=== PATIENT | male | born 1970 | race Caucasian/White ===

== ENCOUNTER 2025-10-17 03:25 | Observation (INO) | payer OTHER, SELFPAY ==
[2025-10-16] VITALS (7 sets, daily range): BP systolic 115–157; BP diastolic 78–102; BMI 28.9
[2025-10-16 15:12] LABS: Hematocrit 44.8 % (39.0-52.0); Hemoglobin 15.5 g/dL (13.0-18.0); Mean Corp Hgb Conc. 34.6 g/dL (33.0-37.0); Mean Corpuscular Volume 90.1 fL (80.0-94.0); Nucleated Red Blood Cells % 0 % (-); Platelet Count 156 10^3/uL (130-400); Red Cell Dist. Width 12.6 % (11.5-14.5)
[2025-10-16 15:34] LABS: ALT (SGPT) 26 U/L (0-50); AST (SGOT) 27 U/L (17-59); Albumin 4.8 g/dl (3.5-5.0); Alkaline Phosphatase 53 U/L (38-126); Blood Urea Nitrogen 16 mg/dl (9-20); Calcium 9.4 mg/dl (8.4-10.2); Carbon Dioxide 26 mmol/L (22-30); Chloride 103 mmol/L (98-107); Glucose 103 mg/dl (70-99); Lipase 161 U/L (23-300); Potassium 4.0 mmol/L (3.5-5.1); Sodium 138 mmol/L (135-145); Total Protein 7.5 g/dl (6.3-8.2); eGFR > 60.00
--- NOTE | 2025-10-16 20:20 | ED.GENMED ---
History of Present Illness
<Maya Ventura NP - Last Filed: 10/17/25 14:07>
General
Chief Complaint: Abdominal Symptoms
Source: patient
Exam Limitations: none
Time Seen by Provider: 10/16/25 20:00
Nursing documentation reviewed up to this point in time: agreed with
History of Present Illness
History of Present Illness:
Patient to the emergency department for evaluation of umbilical pain redness and swelling. Patient states his symptoms started on Wednesday. States pain is worse with standing and sitting. Today he looked at his abdomen and saw swelling at umbilicus
and surrounding erythema. He was evaluated by his PCP and advised to come to the emergency department for imaging. He denies fever chills nausea vomiting diarrhea. No prior history of same.
Past History
<Maya Ventura NP - Last Filed: 10/17/25 14:07>
Past History
ED Past Medical History: None
ED Past Surgical History: None
Patient has exhibited threatening behavior?: No
Social History
Living: with family
Review of Systems
<Maya Ventura NP - Last Filed: 10/17/25 14:07>
Review of Systems
Allergies reviewed?: Yes
All Other Systems: ROS reviewed and negative except as documented in HPI and ROS
Constitutional: Reports no symptoms
EENT: Reports no symptoms
Respiratory: Reports no symptoms
Cardiac: Reports no symptoms
ABD/GI: Reports abdominal pain (Pain to umbilicus.)
: Reports no symptoms
Musculoskeletal: Reports no symptoms
Skin: Reports other (Erythema at umbilicus.)
Neurological: Reports no symptoms
Psychiatric: Reports no symptoms
Phy Exam
<Maya Ventura NP - Last Filed: 10/17/25 14:07>
General Physical Exam
General Presentation: moderate distress
General age: appears stated age
General Skin: warm and dry
General Habitus: normal
General Mental: alert
Cardiovascular Exam
Cardiovascular Exam: regular rate/rhythm
Pulmonary Exam
Pulmonary Exam: lungs clear and no respiratory distress
Gastrointestinal Exam
Gastrointestinal Exam: normal bowel sounds, soft, no organomegaly, non distended and other (umbilical hernia. Erythema surrounding umbilicus. Painful)
Musculoskeletal Exam
Musculoskeletal Exam: full ROM and neuro vasc intact
Skin Exam
Skin Exam: normal color, warm/dry and no rash
Psychiatric Exam
Psychiatric Exam: normal mood/affect
Course
<Maya Ventura NP - Last Filed: 10/17/25 14:07>
Orders/Labs/Results
Orders:
Orders
10/16/25 14:54
Complete Blood Count/With Diff Urgent
Comprehensive Metabolic Panel Urgent
Lipase Urgent
10/16/25 20:19
CT Abd/pelvis W Iv Cont Urgent
Comment:
Reason For Exam: umbilical pain, redness, swelling
10/16/25 23:18
0.9% Sodium Chloride 1000 ml [Nss] 1,000 ml IV BOLUS
HYDROmorphone [Dilaudid] 1 mg IV NOW STA
diazePAM [Valium Injection] 5 mg IV NOW STA
Abnormal Lab Results
10/16/25
14:54
MCH 31.2 H pg
(27.0-31.0)
MPV 10.9 H fL
(7.4-10.4)
Monocytes % 10.4 H %
(1.7-9.3)
Glucose 103 H mg/dl
(70-99)
10/16/25 14:54
10/16/25 14:54
Vital Signs
Initial and Last Documented VS:
Initial Vital Signs
Temp Pulse Resp BP Pulse Ox
97.3 F 78 16 157/96 98
10/16/25 14:47 10/16/25 14:47 10/16/25 14:47 10/16/25 14:47 10/16/25 14:47
Last Documented Vital Signs
Temp Pulse Resp BP Pulse Ox
97.8 F 64 18 123/75 96
10/17/25 08:03 10/17/25 08:03 10/17/25 08:03 10/17/25 08:03 10/17/25 11:06
<Chelly Bonds MD - Last Filed: 10/16/25 23:23>
Orders/Labs/Results
Orders:
Orders
10/16/25 14:54
Complete Blood Count/With Diff Urgent
Comprehensive Metabolic Panel Urgent
Lipase Urgent
10/16/25 20:19
CT Abd/pelvis W Iv Cont Urgent
Comment:
Reason For Exam: umbilical pain, redness, swelling
10/16/25 23:18
0.9% Sodium Chloride 1000 ml [Nss] 1,000 ml IV BOLUS
HYDROmorphone [Dilaudid] 1 mg IV NOW STA
diazePAM [Valium Injection] 5 mg IV NOW STA
Abnormal Lab Results
10/16/25
14:54
MCH 31.2 H pg
(27.0-31.0)
MPV 10.9 H fL
(7.4-10.4)
Monocytes % 10.4 H %
(1.7-9.3)
Glucose 103 H mg/dl
(70-99)
10/16/25 14:54
10/16/25 14:54
Vital Signs
Initial and Last Documented VS:
Initial Vital Signs
Temp Pulse Resp BP Pulse Ox
97.3 F 78 16 157/96 98
10/16/25 14:47 10/16/25 14:47 10/16/25 14:47 10/16/25 14:47 10/16/25 14:47
Last Documented Vital Signs
Temp Pulse Resp BP Pulse Ox
97.8 F 64 18 123/75 96
10/17/25 08:03 10/17/25 08:03 10/17/25 08:03 10/17/25 08:03 10/17/25 11:06
<Elia Madrid, DO - Last Filed: 10/17/25 06:31>
Orders/Labs/Results
Orders:
Orders
10/16/25 14:54
Complete Blood Count/With Diff Urgent
Comprehensive Metabolic Panel Urgent
Lipase Urgent
10/16/25 20:19
CT Abd/pelvis W Iv Cont Urgent
Comment:
Reason For Exam: umbilical pain, redness, swelling
10/16/25 23:18
0.9% Sodium Chloride 1000 ml [Nss] 1,000 ml IV BOLUS
HYDROmorphone [Dilaudid] 1 mg IV NOW STA
diazePAM [Valium Injection] 5 mg IV NOW STA
Abnormal Lab Results
10/16/25
14:54
MCH 31.2 H pg
(27.0-31.0)
MPV 10.9 H fL
(7.4-10.4)
Monocytes % 10.4 H %
(1.7-9.3)
Glucose 103 H mg/dl
(70-99)
10/16/25 14:54
10/16/25 14:54
Vital Signs
Initial and Last Documented VS:
Initial Vital Signs
Temp Pulse Resp BP Pulse Ox
97.3 F 78 16 157/96 98
10/16/25 14:47 10/16/25 14:47 10/16/25 14:47 10/16/25 14:47 10/16/25 14:47
Last Documented Vital Signs
Temp Pulse Resp BP Pulse Ox
97.8 F 64 18 123/75 96
10/17/25 08:03 10/17/25 08:03 10/17/25 08:03 10/17/25 08:03 10/17/25 11:06
<Maya Ventura NP - Last Filed: 10/17/25 14:07>
*Pulse Oximetry
SaO2: 98
Oxygen Mode of Delivery: Room air
<Elia Madrid DO - Last Filed: 10/17/25 06:31>
*Pulse Oximetry
Patient hypoxic: not evaluated
*Critical Care Note
Total Time (30-74mins, 75-104mins- exclusive of procedures): Not Applicable
<Maya Ventura NP - Last Filed: 10/17/25 14:07>
Update Note
Update Note:
Patient to the emergency department for evaluation of pain and redness surrounding umbilicus. Symptoms started on Wednesday. He was evaluated by his family doctor today and advised to come to the emergency department. CT completed and reveals 'small
adjacent fat-containing umbilical hernias with findings suggesting incarceration.' Patient was given IV Dilaudid and Valium. Multiple attempts were made unsuccessfully to reduce hernia. Dr. Reid consulted, will admit to his service.
ED Attending Note
<Maya Ventura NP - Last Filed: 10/17/25 14:07>
-
Portions of this chart may have been created with voice recognition software.� Occasional wrong word or��sound alike� substitutions may have occurred due to the inherent limitations of voice recognition software.
<Chelly Bonds MD - Last Filed: 10/16/25 23:23>
ED Attending Note
Patient seen and examined by attending physician: Yes
I performed the substantive portion of visit, reviewed & personally made and approve the management plan that is documented in note by myself or SANTIAGO.: Yes
ED Attending Note:
Patient has a tender and firm umbilical hernia on exam. Patient is exquisitely tender to the touch when I try to reduce it. CT shows it does not contain bowel. We will give patient Dilaudid and Valium in hopes that we can manually reduce it at
bedside.
<Elia Madrid, - Last Filed: 10/17/25 06:31>
ED Attending Note
Patient seen and examined by attending physician: Yes
I performed the substantive portion of visit, reviewed & personally made and approve the management plan that is documented in note by myself or SANTIAGO.: Yes
ED Attending Note:
Patient has a tender and firm umbilical hernia on exam. Patient is exquisitely tender to the touch when I try to reduce it. CT shows it does not contain bowel. We will give patient Dilaudid and Valium in hopes that we can manually reduce it at
bedside.
Nurse practitioner requested I attempt to reduce the fat-containing umbilical hernia. I was unsuccessful in reducing it. The defect was very small and I was unable to get the fat containing hernia back through the defect. Patient tolerated
procedure well. Patient seems to be at he is in no acute distress during the procedure. Nurse practitioner will consult general surgery.
Discharge Plan
Departure
Patient Disposition: Admit
Presentation/result/management discussed w/ accepting MD/DO: Dr. reid
Patient with high blood pressure during this ER visit?: Yes
Condition: Fair
Covid-19: Not Applicable
Discharge Problem:
Hernia, umbilical
Interventions
Interventions:
*Risk Screen - Suicide Last Done: 10/17/25 03:55
*General Assessment Last Done: 10/16/25 20:01
*Neglect/Abuse Screening Last Done: 10/16/25 14:49
*ED- Fall Risk Assessment Last Done: 10/16/25 20:01
*ED COVID-19 Vaccine History Last Done: 10/17/25 03:55
*ED Influenza Vaccine History Last Done: 10/16/25 20:01
*Nursing Disposition Last Done: 10/17/25 03:32
CH-[id number] Assessment Last Done: 10/16/25 20:01
Discharge Date and Time
Discharge Date/Time: 10/17/25 03:40
[2025-10-16] MEDS: NSS 1000 IV (23:38)
[2025-10-16] MEDS: DILAUDID IV (23:40)
[2025-10-16] MEDS: VALIUM INJECTION IV (23:40)
[2025-10-16] MEDS: VALIUM INJECTION 5 MG IV (23:51)
[2025-10-16] MEDS: DILAUDID 1 MG IV (23:51)
[2025-10-17] VITALS (11 sets, daily range): BP systolic 95–131; BP diastolic 59–111; BMI 29.2
--- NOTE | 2025-10-17 03:04 | DOWNTIME ---
There was a meebee Client Review Coordinator Downtime on 10/17/2025 from 0100 to 10/17/2025 at 0255. Downtime documentation of patient's care, including medication administrations, has been reconciled in the electronic record per guidelines. Refer to the
patient's paper chart under the miscellaneous tab to see printed paper medication records and downtime forms.
[2025-10-17] MEDS: NSS 1000 IV (04:08)
--- NOTE | 2025-10-17 04:14 | HPS.HSE ---
Addendum entered and electronically signed by Otis Reid MD 10/17/25 10:03:
I saw and examined the patient.
The Application Coordinator's note was reviewed and I agree with the note.
Comment: Abd discomfort began 3 days ago, progressed to mod-sev pain with redness around the umbilicus. He saw PCP who referred him to ED. Feels about the same today. On exam a tender incarcerated erythamtous umbilical hernia is noted. AFVSS, no
leukocytosis. CT reviewed, no bowel involvement. Given ongoing pain and erythema, recommend operative repair. Added onto schedule today for MIS UHR. Preop abx ordered. DVT ppx.
Original Note:
Family Physician
-
Family Physician: Irene Botello, DO
Chief Complaint
-
umbilical pain and redness
History of Present Illness
Patient to the emergency department for evaluation of umbilical pain redness and swelling. Patient states his symptoms started on Wednesday. States pain is worse with standing and sitting. Today he looked at his abdomen and saw swelling at umbilicus
and surrounding erythema. He was evaluated by his PCP and advised to come to the emergency department for imaging. He denies fever chills nausea vomiting diarrhea. No prior history of same. Attempts were made to reduce hernia in ED but were
unsuccessful.
CT abd: IMPRESSION: Small adjacent fat containing umbilical hernias with finding suggesting incarceration/strangulation. One hernia was present previously. This stranding is new.
Severe diffuse bladder wall thickening. This can be seen with cystitis and bladder outlet obstruction.
Medical History
Past Medical History
Past Medical History: Reports None
Past Surgical History: Reports Tonsilectomy (1971)
Social History
Tobacco: Non-smoker
Alcohol: Occasional
Drug: None
Personal: Single
Living: Alone
Employment: Employed
Family History
Family History: Not pertinent
Allergies / Home Medications
Allergies reflects when Allergies were last updated in [facility].
Home Medications with original date entered in [facility]
Allergy/Medication List:
take no medications routinely
Review of Systems
-
History Source: Patient
A 12 point ROS was completed and negative except as noted: Yes
Constitutional: Reports No Symptoms
EENT: Reports No Symptoms
Respiratory: Reports No Symptoms
Cardiac: Reports No Symptoms
Abdomen/GI: Reports Abdominal Pain (umbilical tenderness and redness)
: Reports No Symptoms
Musculoskeletal: Reports No Symptoms
Skin: Reports Other (redness to umbilicus)
Neurological: Reports No Symptoms
Endocrine: Reports No Symptoms
Hematologic/Lymphatic: Reports No Symptoms
Psych: Reports No Symptoms
Physical Exam
Vital Signs
Vital Signs
Temp Pulse Resp BP Pulse Ox
97.6 F 56 18 130/86 97
10/17/25 03:34 10/17/25 03:34 10/17/25 03:34 10/17/25 03:34 10/17/25 03:34
Physical Exam
General: Well Developed, Well Nourished, No Apparent Distress and Comfortable
HEENT: NormoCephalic, Anicteric and Moist mucous membranes
Respiratory: Clear
Cardiac: S1/S2 and Regular Rhythm
Breast: Deferred by me
GI: Normal Bowel Sounds, Tender (tender at umbilicus. area reddened) and Distended (softly distended); No Non Tender or Non Distended
Rectal: Deferred by Provider
Genito-urinary: Deferred by me
Musculoskeletal: No Clubbing and No Cyanosis
Skin: Warm and Other (umbilicus reddened)
Neuro: Awake, Alert, Oriented, AO x 3 and No Motor Deficits
Hematologic/Lymphatic: No Lymphadenopathy
Psych: Calm
Laboratory Results
-
10/16/25 14:54
10/16/25 14:54
Laboratory Results
Total Bilirubin 0.8 mg/dl (0.2-1.3) 10/16/25 14:54
AST 27 U/L (17-59) 10/16/25 14:54
ALT 26 U/L (0-50) 10/16/25 14:54
Alkaline Phosphatase 53 U/L (38-126) 10/16/25 14:54
Lipase 161 U/L (23-300) 10/16/25 14:54
Data Reviewed
-
CT Scan: Discussed with Physician
Impression/Plan
-
IMPRESSION:
54 yo male presents to ED with complaints of pain around umbilicus with redness. He noticed this wednesday. Found to have fat containing Small adjacent fat containing umbilical hernias with finding suggesting incarceration/strangulation.
PLAN:
Admit to service of Dr Reid
Med surg obs
NPo x meds
IVF NSS @125
Pain control: tylenol, toradol prn
DVT proph: SCD
Full code
--- NOTE | 2025-10-17 04:31 | PTCARENOTE ---
received pt from ED at 0330. pt ambulated from stretcher to bed. pt A&O x 3. pt offers no current complaints and appears comfortable in bed. call lara within reach. plan of care ongoing.
--- NOTE | 2025-10-17 12:16 | CM ---
Addendum entered by Lola Avelar 10/17/25 12:22:
Pt left before CM could complete IA. No needs identified.
Addendum entered by Lola Avelar 10/17/25 12:19:
correction; Pt is driving himself home
Original Note:
Pt is leaving AMA. He will go home with his
--- NOTE | 2025-10-17 12:32 | PTCARENOTE ---
pt leaving AMA. Dr. Reid made aware. risks and restrictions relayed as per Dr. Reid. Surgery to call pt for future outpt scheduling.
== END 2025-10-17 12:37 | disposition left against medical advice (07) ==
LOC: 4 EAST ACU 03:25
PROVIDERS: Student in an Organized Health Care Education/Training Program; ADMITTING PHYSICIAN Surgery; EMERGENCY PHYSICIAN Emergency Medicine; FAMILY PHYSICIAN Family Medicine
DX: K42.0 Umbilical hernia with obstruction, without gangrene (principal); R10.9 Unspecified abdominal pain; R10.33 Periumbilical pain; R19.09 Other intra-abdominal and pelvic swelling, mass and lump; N32.89 Other specified disorders of bladder; Z53.29 Procedure and treatment not carried out because of patient's decision for other reasons
CPT/HCPCS: 74177; 80053; 83690; 85025; 96361; 96374; 96375; 99284; G0378; Q9967